=== PATIENT | female | born 1990 | race Caucasian/White ===

== ENCOUNTER 2025-02-14 16:11 | Emergency (ER) | payer BC, SELFPAY ==
[2025-02-14 16:25] VITALS: BP 128/86
--- NOTE | 2025-02-14 17:23 | ED.GENMED ---
Addendum entered and electronically signed by Kory Ewing MD 02/14/25 19:22:
On reassesment at discharge small area of redness where the warmth was. However the warmth is most of the pelaez. The redness is very mild. Area marked. discussed antibiotics. will send prescription over though patient will wait to see if the redness
persists/spreads. She will call ortho for follow up. patient remains afebrile with no systemic symptoms so appropriate to hold off on abx.
Original Note:
History of Present Illness
General
Chief Complaint: DVT/Possible Blood Clot
Time Seen by Provider: 02/14/25 17:18
History of Present Illness
History of Present Illness:
Patient is a 34-year-old woman with ACL reconstruction on February 11 presenting to the emergency department with swelling. Patient states that she had her ACL reconstructed at the [facility] on February 11. She did notice some swelling yesterday as
well as some warmth to the pelaez. No tenderness no fevers or chills. No drainage from the surgical site. No numbness tingling. No chest pain or shortness of breath she has been taking Tylenol and Motrin as well as aspirin
Phy Exam
Physical Exam
Physical Exam:
GENERAL: in no acute distress
HEENT: normocephalic, extraocular movements intact, moist oral mucosa
NECK: normal inspection
RESPIRATORY: no respiratory distress, clear to auscultation bilaterally
CARDIOVASCULAR: regular rate and rhythm
ABDOMEN/: soft, non-distended, non-tender to palpation, no rebound or guarding
EXTREMITIES: Right lower extremity with 2+ DP pulse, sensation intact, swelling to the right lower extremity and slight warmth right pelaez compared to the calf, surgical site dressing clean dry intact
NEUROLOGIC: awake and alert, moves all extremities
SKIN: warm
Course
Orders/Labs/Results
Orders:
Orders
02/14/25 16:28
US Periph Venous LOWER Ext RT Urgent
Comment:
Reason For Exam: swelling, warmth, s/p R ACL reconstruction
Vital Signs
Initial and Last Documented VS:
Initial Vital Signs
Temp Pulse Resp BP Pulse Ox
98.7 F 125 16 128/86 99
02/14/25 16:25 02/14/25 16:25 02/14/25 16:25 02/14/25 16:25 02/14/25 16:25
Last Documented Vital Signs
Temp Pulse Resp BP Pulse Ox
98.7 F 125 16 128/86 99
02/14/25 16:25 02/14/25 16:25 02/14/25 16:25 02/14/25 16:25 02/14/25 17:25
MDM/Problems Addressed
Differential Diagnosis Includes:
Patient is a 34-year-old woman presenting to the emergency department with right lower extremity swelling after ACL reconstruction surgery 3 days ago. Vitals initially are notable for tachycardia though during my evaluation that has resolved. Exam
does show mild swelling to the right lower extremity and warmth to the pelaez compared to the calf. Concern for DVT versus normal postop swelling. History and exam not consistent with compartment syndrome or fracture or arterial etiology. Will
proceed with ultrasound. She did take Tylenol prior to arrival.
*Pulse Oximetry
SaO2: 99
Oxygen Mode of Delivery: Room air
Patient hypoxic: no
*Critical Care Note
Total Time (30-74mins, 75-104mins- exclusive of procedures): Not Applicable
Update Note
Update Note:
DVT study negative. Will discharge at this time. Patient to follow-up with orthopedics outpatient.
ED Attending Note
-
Portions of this chart may have been created with voice recognition software.� Occasional wrong word or��sound alike� substitutions may have occurred due to the inherent limitations of voice recognition software.
Discharge Plan
Departure
Patient Disposition: Home (Routine Discharge)
Date of Disposition: 02/14/25
Time of Disposition: 19:08
Patient with high blood pressure during this ER visit?: No
Discharge Problem:
Leg swelling
Instructions: Swelling
Prescriptions:
No Action
vit-iron fum-folic ac 1 EACH tablet
1 ea PO DAILY
acetaminophen 325 MG tablet
650 mg PO Q4HPRN PRN (Reason: mild pain) 0RF
ibuprofen 600 MG tablet
600 mg PO Q4HPRN PRN (Reason: moderate pain/cramps) 0RF
Referrals:
Rose Mary Orellana DO [Family Provider, Family Practice]
Interventions
Interventions:
*Risk Screen - Suicide Last Done: 02/14/25 16:25
*General Assessment Last Done: 02/14/25 16:25
*Neglect/Abuse Screening Last Done: 02/14/25 18:29
*ED COVID-19 Vaccine History Last Done: 02/14/25 16:25
*ED Influenza Vaccine History Last Done: 02/14/25 16:25
ED- Cardiac Assessment Last Done: 02/14/25 17:35
ED-Peripheral Vascular Assessment Last Done: 02/14/25 17:35
ED-Skin Assessment Last Done: 02/14/25 17:35
Discharge Date and Time
Print Language: GEORGIAN
[2025-02-14 17:35] VITALS: BMI 21.9
== END 2025-02-14 19:33 | disposition home or self-care (01) ==
LOC: EMR 16:11
PROVIDERS: EMERGENCY PHYSICIAN Student in an Organized Health Care Education/Training Program; FAMILY PHYSICIAN Family Medicine
DX: R22.41 Localized swelling, mass and lump, right lower limb (principal)
CPT/HCPCS: 99284; 93971